=== PATIENT | male | born 1960 | race African-American/Black ===

== ENCOUNTER 2019-11-03 21:06 | Emergency (ER) | payer OTHER ==
[~2019-11-03] VITALS: Ht 182.9 cm; Wt 79.4 kg
--- NOTE | 2019-11-03 21:19 | NUR ---
SERAFIN AYALA at [facility] for MSE
--- NOTE | 2019-11-03 21:50 | NUR ---
Patient alert and oriented x4, no signs of acute distress noted, patient changed into hospital gown, on isolation as a person of interest, vital signs stable
[2019-11-03] MEDS ORDERED: ACETAMINOPHEN ES 500 MG TABLET PO ONE (22:00)
[2019-11-03] MEDS ORDERED: ACETAMINOPHEN ES 500 MG TABLET ONE (22:04)
[2019-11-03 22:14] LABS: BASOPHILS % (AUTO) 0.8 % (0.0-2.0); HEMOGLOBIN 10.9 g/dL (12.5-16.3); LYMPHOCYTES # (AUTO) 1.6 K/uL (20.0-40.0); LYMPHOCYTES % (AUTO) 41.3 % (20.5-51.5); MEAN CORPUSCULAR HGB CONC 33 g/dL (32.5-36.3); MEAN CORPUSCULAR VOLUME 81.6 fL (73.0-96.2); MONOCYTES # (AUTO) 0.2 K/uL (2.0-10.0); NEUTROPHILS % (AUTO) 52.9 % (38.5-71.5); PLATELET COUNT (AUTO) 292 K/uL (152-348); RED BLOOD CELL COUNT(AUTO) 4.05 MIL/uL (4.06-5.63); WHITE BLOOD COUNT (AUTO) 3.9 K/uL (3.6-10.2)
[2019-11-03 22:18] LABS: POTASSIUM 5.5 mmol/L (3.5-5.1)
--- NOTE | 2019-11-03 22:23 | NUR ---
Patient left via gurney/bed to radiology department
[2019-11-03 22:27] LABS: BILIRUBIN,TOTAL 0.6 mg/dL (0.2-1.0); TOTAL PROTEIN, SERUM 8.3 g/dL (6.4-8.2)
--- NOTE | 2019-11-03 23:07 | NUR ---
Patient noted resting in bed with eyes closed, no complaints of pain at this time, no signs of acute distress noted, vitals signs WNL, all needs met at this time
[2019-11-03 23:42] LABS: CREATINE KINASE, TOTAL 197 U/L (39-308)
[2019-11-03 23:53] LABS: FERRITIN 50 ng/mL (26-388); LACTATE DEHYDROGENASE 360 U/L (85-227)
--- NOTE | 2019-11-04 00:25 | NUR ---
According to lab, COVID swab has not been picked up from playground monitor at this time. Still awaiting departure and processing.
--- NOTE | 2019-11-04 00:34 | NUR ---
Per MD patient is ready to be admitted Dx chest pain and syncope, per [employer] states they will look for bed with will call transport
--- NOTE | 2019-11-04 01:54 | NUR ---
patient noted resting in bed, signs of distress noted, vitals WNL
--- NOTE | 2019-11-04 02:30 | NUR ---
No signs of acute distress noted, all needs met
--- NOTE | 2019-11-04 02:41 | NUR ---
Followed up with [employer] (Iris), states unable to find transport at this time, will follow up
--- NOTE | 2019-11-04 03:24 | NUR ---
Followed up with Iris from [facility], no transport available, Iris states she will call back
--- NOTE | 2019-11-04 04:35 | NUR ---
Claudia from [facility] called again and states she will try to get authorization to admit patient on tele unit of [facility]
--- NOTE | 2019-11-04 04:50 | NUR ---
authorization to admit patient received at this time (#[id number]), [facility] paged at this time
[2019-11-04] MEDS ORDERED: LORA2TAB95 PO (05:02)
[2019-11-04] MEDS ORDERED: DILT180C66 PO (05:02)
[2019-11-04] MEDS ORDERED: eye drop EACHEYE (05:02)
[2019-11-04] MEDS ORDERED: dilantin PO (05:02)
[2019-11-04] MEDS ORDERED: ALBU8.5H8 IH (05:02)
[2019-11-04] MEDS ORDERED: DIGO250T PO (05:02)
[2019-11-04] MEDS ORDERED: SERT50TA PO (05:02)
[2019-11-04] MEDS ORDERED: TRAZ-257 PO (05:02)
[2019-11-04 06:04] VITALS: BP 104/65
--- NOTE | 2019-11-04 06:07 | NUR ---
Patient discharged to homeless skilled nursing in stable condition. Written and verbal after care instructions given. Patient use wheelchair as a form of ambulation. Patient verbalizes understanding of instructions but declines. Taxi voucher provided. Stressed follow up or return to ER for worsening s/s. Patient does not wish to proceed with medical care recommended by Dr. Rogers. Patient given information related to possible complications, up to and including , which could occur as a result of leaving the hospital at this time. Patient verbalizes understanding of risks involved due to leaving against medical advice. Patient has signed AMA form.
== END 2019-11-04 06:13 | disposition left against medical advice (07) ==
LOC: ER 21:11
DX: R07.9 Chest pain, unspecified (principal); M48.02 Spinal stenosis, cervical region; R55 Syncope and collapse; I25.10 Atherosclerotic heart disease of native coronary artery without angina pectoris; Z95.5 Presence of coronary angioplasty implant and graft; Z85.028 Personal history of other malignant neoplasm of stomach; Z85.07 Personal history of malignant neoplasm of pancreas; Z91.14 Patient's other noncompliance with medication regimen; I25.2 Old myocardial infarction; E11.9 Type 2 diabetes mellitus without complications; Z59.0 Homelessness; J45.909 Unspecified asthma, uncomplicated; Z76.5 Malingerer [conscious simulation]; F10.129 Alcohol abuse with intoxication, unspecified; Y90.8 Blood alcohol level of 240 mg/100 ml or more
CPT/HCPCS: 36415; 70030-TC; 70450; 71045; 72125; 83615; 85025; 85730; 86140; 93005; A4663; A9150; G0480

== ENCOUNTER 2021-02-24 20:49 | Emergency (ER) | payer OTHER ==
[~2021-02-24] VITALS: Ht 182.9 cm; Wt 79.4 kg
[~2021-02-24 20:49] MED LIST: ALBU8.5H8 IH; DIGO250T PO; DILT180C66 PO; LORA2TAB95 PO; SERT50TA PO; TRAZ-257 PO; dilantin PO; eye drop EACHEYE
--- NOTE | 2021-02-24 20:55 | NUR ---
PT BIB RA 100 C/O CP. GIVEN NITRO X2 ANS ASPIRIN 325 MG ON FIELD. PT STATES "I'VE BEEN DRINKING ALL DAY". NO SOB OR LABORED BREATHING, AFEBRILE. NO N/V/D.
--- NOTE | 2021-02-24 21:15 | NUR ---
DR. CASTANEDA AT BEDSIDE, MSE IN PROGRESS.
--- NOTE | 2021-02-24 21:20 | NUR ---
PT HAS REFUSED IV AND LABS AT THIS TIME.
[2021-02-24] MEDS ORDERED: PHENYTOIN SODIUM IV 1,000 MG in IV NORMAL SALINE 100 ML IV ONE (21:30)
[2021-02-24] MEDS ORDERED: OXYCODONE/APAP 5-325 MG TABLET PO ONE (21:30)
[2021-02-24] MEDS ORDERED: OXYCODONE/APAP 5-325 MG TABLET ONE (21:42)
[2021-02-24] MEDS ORDERED: PHENYTOIN SODIUM 250 MG/5 ML VIAL IV ONE (21:43)
--- NOTE | 2021-02-24 21:44 | NUR ---
PT BEING TAKEN DOWN FOR CT/XRAY.
--- NOTE | 2021-02-24 21:58 | NUR ---
pt has returned from cat scan. er aware.
--- NOTE | 2021-02-24 22:00 | NUR ---
PT RETURNED FROM CT/XRAY.
[2021-02-24] MEDS ORDERED: PHEN100C4 PO (22:28)
[2021-02-24] MEDS ORDERED: PHENYTOIN SODIUM EXTENDED 100 MG CAPSULE.SA PO ONE ×2 (22:30→22:53)
[2021-02-24] MEDS ORDERED: THIAMINE HCL 100 MG TABLET PO ONE (22:30)
--- NOTE | 2021-02-24 22:35 | NUR ---
PT WAS GIVEN DISCHARGE INSTRUCTIONS AND UPON DISCHARGE PT STATES "I CAN'T GO HOME NOW I HAVE SUICIDAL THOUGHTS, I'M NOT RIGHT IN THE HEAD. I WANT TO BE SEEN AND EVALUATED BY A PSYCHIATRIST" NO PLANS WERE PROVIDED UPON EVALUATING PT. NO ONE TO ONE SITTER AVAILABLE. CHIEF DESIGN BRANCH AWARE. PT CLOSELY AND CONTINOUSLY BEING MONITORED. PROVIDED SAFE AND QUITE ENVIRONEMENT.
[2021-02-24] MEDS ORDERED: THIAMINE HCL 100 MG TABLET ONE (22:53)
[2021-02-24] MEDS ORDERED: HALOPERIDOL LACTATE 5 MG/1 ML VIAL IM ONE (23:15)
[2021-02-24] MEDS ORDERED: HALOPERIDOL LACTATE 5 MG/1 ML VIAL ONE (23:18)
--- NOTE | 2021-02-24 23:56 | NUR ---
LAB AT BEDSIDE.
[2021-02-25 00:35] LABS: HEMATOCRIT 37.9 % (36.7-47.1); MEAN CORPUSCULAR HEMOGLOBIN 29.1 uug (23.8-33.4); MEAN CORPUSCULAR VOLUME 87.2 fL (73.0-96.2); PLATELET COUNT (AUTO) 76 K/uL (152-348)
[2021-02-25 00:46] LABS: CREATININE 1.1 mg/dL (0.6-1.3); POTASSIUM 3.6 mmol/L (3.5-5.1)
[2021-02-25 00:51] LABS: BILIRUBIN,DIRECT 0.5 mg/dL (0.0-0.2); BILIRUBIN,TOTAL 0.7 mg/dL (0.2-1.0); PHENYTOIN (DILANTIN) 0.6 ug/mL (10.0-20.0); TOTAL PROTEIN, SERUM 9.3 g/dL (6.4-8.2)
--- NOTE | 2021-02-25 01:10 | NUR ---
PT NOTED TO BE IN BED ASLEEP. BED IN LOWEST POSITION FOR SAFETY PRECAUTIONS.
--- NOTE | 2021-02-25 01:41 | NUR ---
FAXED OVER FACE SHEET AND SUMMARY REPORT TO RONNELL BENNETT. PHONE #[phone] FAX # [phone]
--- NOTE | 2021-02-25 02:04 | NUR ---
CHANELLE FROM [facility] CALLED BACK AND STATED "OK WE WILL TRY AND ACCOMODATE THIS PATIENT, WE'LL GIVE YOU GUYS A CALL BACK".
--- NOTE | 2021-02-25 03:51 | NUR ---
PT RESTING COMFORTABLY. EYES CLOSED. BREATHING EVEN AND UNLABORED.
--- NOTE | 2021-02-25 05:35 | NUR ---
CALLED RONNELL JONES AND MADE AWARE PT WAS DISCHARGED.
[2021-02-25 05:45] VITALS: BP 125/82
--- NOTE | 2021-02-25 05:47 | NUR ---
Patient discharged to home in stable condition. Written and verbal after care instructions given. Patient verbalizes understanding of instructions. Stressed follow up or return to ER for worsening s/s. pt taken to waiting room via w/c, pt's waiting for him. pt able to ambulate without assistance pt steady gait.
[2021-02-25 17:14] LABS: NEUTROPHILS % (MANUAL) 52 % (42-75)
[2021-02-25 17:15] LABS: LYMPHOCYTES % (MANUAL) 46 % (20-40); MONOCYTES % (MANUAL) 2 % (2-10)
== END 2021-02-25 05:49 | disposition home or self-care (01) ==
LOC: ER 20:49
DX: F10.229 Alcohol dependence with intoxication, unspecified (principal); Y90.8 Blood alcohol level of 240 mg/100 ml or more; D61.818 Other pancytopenia; G40.909 Epilepsy, unspecified, not intractable, without status epilepticus; I25.2 Old myocardial infarction; Z59.00 Homelessness unspecified; Z88.0 Allergy status to penicillin; E11.9 Type 2 diabetes mellitus without complications; Z79.899 Other long term (current) drug therapy; Z91.041 Radiographic dye allergy status; Z95.5 Presence of coronary angioplasty implant and graft; F25.9 Schizoaffective disorder, unspecified; I25.10 Atherosclerotic heart disease of native coronary artery without angina pectoris; Z20.822 Contact with and (suspected) exposure to COVID-19
CPT/HCPCS: 36415; 70450; 71045; 80048; 80076; 80185; 80320; 83735; 85007; 85025; 85730; 87426; 93005; 96372; 99285; J1630; 70030-TC; G0480; J1165

== ENCOUNTER 2022-01-17 11:07 | Inpatient (IN) | payer OTHER ==
[~2022-01-17] VITALS: Ht 167.6 cm; Wt 66.7 kg
[~2022-01-17 11:07] MED LIST changes: +PHEN100C4 PO
--- NOTE | 2022-01-17 11:20 | NUR ---
PT ARRIVED VIA EMS COMPLAINING ABOUT CP; PT IN NAD; VSS. NO SOB NOTED
--- NOTE | 2022-01-17 11:25 | NUR ---
EKG DONE AND PT PLACED ON THE BODY WELDER. NO IV PRESENT AT HIS TIME.
[2022-01-17] MEDS ORDERED: DILTIAZEM HCL CD 120 MG CAP.SR.24H PO ONE ×2 (11:30→12:24)
[2022-01-17] MEDS ORDERED: ASPIRIN 325 MG TABLET PO ONE (11:30)
[2022-01-17] MEDS ORDERED: MORPHINE SULFATE 4 MG/1 ML DISP.SYRIN IV ONE (11:30)
[2022-01-17] MEDS ORDERED: DIGOXIN 125 MCG TABLET PO ONE (11:30)
[2022-01-17] MEDS ORDERED: levETIRAcetam 250 MG TABLET PO ONE (11:30)
--- NOTE | 2022-01-17 11:30 | NUR ---
UNABLE TO PLACE AN IV; NOTIFIED
[2022-01-17] MEDS ORDERED: DIGOXIN 125 MCG TABLET ONE (12:23)
[2022-01-17] MEDS ORDERED: levETIRAcetam 250 MG TABLET ONE (12:23)
[2022-01-17] MEDS ORDERED: ASPIRIN 325 MG TABLET ONE (12:24)
--- NOTE | 2022-01-17 12:30 | NUR ---
SERAFIN AYALA WAS ABLE TO PLACE IV WITH U/S. PT ALBINA WELL
[2022-01-17] MEDS ORDERED: MORPHINE SULFATE 4 MG/1 ML DISP.SYRIN ONE (12:37)
[2022-01-17 12:50] LABS: CARBON DIOXIDE 26 mmol/L (21-32); CHLORIDE 108 mmol/L (98-107); CREATININE 0.8 mg/dL (0.6-1.3); GLUCOSE 96 mg/dL (74-106); UREA NITROGEN, BLOOD 11 mg/dL (7-18)
--- NOTE | 2022-01-17 13:01 | NUR ---
Melanie morales in ED - 01/17/22 at 1302 by CRISTELA IV WAS ATTEMPTED WITHOUT SUCCESS. NOTIFIED
[2022-01-17 13:03] LABS: MEAN CORPUSCULAR HEMOGLOBIN 29.1 uug (23.8-33.4); MEAN CORPUSCULAR VOLUME 88.4 fL (73.0-96.2); PLATELET COUNT (AUTO) 183 K/uL (152-348)
--- NOTE | 2022-01-17 15:38 | NUR ---
PT BACK FROM CT; WATCHING VIDEOS ON HIS PHONE AT THIS TIME. NAD AT THIS TIME
[2022-01-17] MEDS ORDERED: REMEDY ESSENTIAL ZINC PASTE 113 GM TP PRN (16:30)
[2022-01-17] MEDS ORDERED: ONDANSETRON 4 MG/2 ML VIAL IV PRN (16:30)
[2022-01-17] MEDS ORDERED: ZOLPIDEM 5 MG TABLET PO PRN (16:30)
[2022-01-17] MEDS ORDERED: MORPHINE SULFATE 2 MG/1 ML DISP.SYRIN IV PRN (16:30)
[2022-01-17] MEDS ORDERED: ACETAMINOPHEN 325 MG TABLET PO PRN (16:30)
[2022-01-17] MEDS ORDERED: MAGNESIUM HYDROXIDE 30 ML LIQUID UDC PO PRN (16:30)
[2022-01-17] MEDS ORDERED: ALBUTEROL SULFATE 8 GM HFA.AER.AD IH PRN (16:45)
[2022-01-17] MEDS ORDERED: LORAZEPAM 1 MG TABLET PO PRN ×2 (16:45→17:53)
[2022-01-17 16:48] LABS: *AMPHETAMINE, URINE NEGATIVE (NEGATIVE); *CANNABINOID, URINE NEGATIVE (NEGATIVE); *COCCAINE, URINE NEGATIVE (NEGATIVE); *OPIATE, URINE POSITIVE (NEGATIVE); *PHENCYCLIDINE SCREEN,URINE NEGATIVE (NEGATIVE)
[2022-01-17] MEDS ORDERED: levETIRAcetam 500 MG TABLET PO ONE (17:00)
[2022-01-17] MEDS ORDERED: ALBUTEROL SULFATE 2.5 MG/3 ML NEBU NEB PRN (17:00)
[2022-01-17] MEDS: MORPHINE SULFATE 2 MG/1 ML DISP.SYRIN IM PRN ×2 (17:17→21:37)
[2022-01-17] MEDS ORDERED: PHENYTOIN SODIUM IV 1,000 MG in IV NORMAL SALINE 100 ML IV ONE (17:30)
--- NOTE | 2022-01-17 17:30 | NUR ---
No iv on pt awaiting midline nurse to have iv access.
--- NOTE | 2022-01-17 17:44 | NUR ---
Pt refused to be assessed. Pt IV pulled out by patient. Pt yelling "I WANT MY MORPHINE 4MG IV NOW!!!" explained to patient that iv dont have an iv access and wound need an order to change route to IM. Pt very aggressive and verbally abusive and condescending. VSS TELE SNR. no ectopy noted. Call light is within reach.
--- NOTE | 2022-01-17 18:27 | NUR ---
attempted to admit pt again as best as possible got information from chart and pt. Pt refused to be assessed still and states "I DONT ANSWER QUESTIONS". Notified maternity floor supervisor that we need Midline for patient as pt is a hard stick. Got Info for pharmacy pt goes to [facility] at [address] in [place]. ([phone]) to verify meds.
[2022-01-17 20:00] VITALS: BP 119/74
[2022-01-17] MEDS: TRAZODONE 100 MG TABLET PO SCH (20:06)
[2022-01-17] MEDS: PHENYTOIN SODIUM EXTENDED 100 MG CAPSULE.SA PO SCH (20:38)
[2022-01-17] MEDS: diphenhydrAMINE 25 MG CAP PO PRN (21:46)
[2022-01-17] MEDS: levETIRAcetam 500 MG TABLET PO SCH (22:52)
[2022-01-17] MEDS: MAG HYDROX/AL HYDROX/SIMETH 30 ML LIQUID UDC PO PRN (23:00)
[2022-01-18] VITALS: BP 131/79
[2022-01-18 04:00] VITALS: BP 122/75
[2022-01-18] MEDS: PANTOPRAZOLE SODIUM 40 MG TABLET.DR PO SCH (06:19)
[2022-01-18 07:03] LABS: CREATININE 0.9 mg/dL (0.6-1.3); MAGNESIUM 1.6 mg/dL (1.8-2.4); PHOSPHOROUS 3.6 mg/dL (2.5-4.9); POTASSIUM 4.1 mmol/L (3.5-5.1)
[2022-01-18 07:31] LABS: DIGOXIN 0.3 ng/mL (0.9-2.0)
[2022-01-18 07:32] LABS: HEMATOCRIT 34.7 % (36.7-47.1); MEAN CORPUSCULAR HEMOGLOBIN 29.1 uug (23.8-33.4); MEAN CORPUSCULAR VOLUME 88.7 fL (73.0-96.2); PLATELET COUNT (AUTO) 186 K/uL (152-348)
[2022-01-18 08:10] LABS: THYROID STIMULATING HORMONE 3.625 mIU/mL (0.358-3.740)
[2022-01-18] MEDS: SERTRALINE HCL 50 MG TABLET PO SCH (08:38)
[2022-01-18] MEDS: PHENYTOIN SODIUM EXTENDED 100 MG CAPSULE.SA PO SCH ×2 (08:38→21:04)
[2022-01-18] MEDS: levETIRAcetam 500 MG TABLET PO SCH ×2 (08:38→21:04)
--- NOTE | 2022-01-18 08:40 | NUR ---
Social Work consult was requested for a patient on [facility] for mental health and substance abuse resources. Patient is a 61-year-old male who was admitted to the hospital for chest pain. Patient is alert and oriented X4. Patient presents with anxious mood and congruent affect. Patient presents with poor judgment and insight. Patient states he has a , Alta Muro ([phone]), that lives in [place]. DILMA spoke with Alta Muro ([phone]) and she states that she is not the patients and is his friend. Patient states he has been homeless for three years. DILMA provided the patient with resources for [facility] [address] [place] [address] ([phone]) and [facility] [address] [facility] [address] ([phone]). DILMA gave resources for [facility] [address] [facility] [address]. Patient was appreciative of the resources. Resources were placed in the chart. Patient states he is unemployed and needs a wheelchair. DILMA spoke with the patients nurse, Priscila, who states she will order a wheelchair from [employer]. Patient states he has a history of alcohol abuse and the patients alcohol level is 333 and the toxicology report is positive for opiates. DLIMA provided the patient resources for [address] [address] ([phone]), [facility] [address] [facility] [address] ([phone]), and [facility] [address] [place] [address] ([phone]). Patient states he has a history of bipolar disorder. DILMA provided the patient with mental health resources for [facility] ([phone]) [address] [facility] [address]. DILMA placed the resources in the patients chart. Patient denied suicidal or homicidal ideation. Patient states he is open to going to [address] [address] ([phone]). DILMA spoke to Angela from [facility] ([phone]) faxed the patients clinical information (fax: [phone]). DILMA called [facility] on 01/18/22 and spoke to the admission navigator, Paris ([phone]) and she states the patient is under review. DILMA will continue to follow up.
[2022-01-18] MEDS: DILTIAZEM HCL CD 180 MG CAP.SR.24H PO SCH (08:42)
[2022-01-18] MEDS ORDERED: ASPIRIN 81 MG TAB.CHEW PO SCH (09:00)
[2022-01-18] MEDS ORDERED: DIGOXIN 250 MCG TABLET PO SCH (09:00)
[2022-01-18] MEDS ORDERED: MAGNESIUM SULFATE/D5W 100 ML IV SCH (09:45)
[2022-01-18] MEDS ORDERED: MAGNESIUM OXIDE 400 MG TABLET PO ONE (10:00)
--- NOTE | 2022-01-18 10:13 | NUR ---
Clinical SW note: SW contacted board and rn critical care, Jessie ([phone]) and she states she will come and assess the patient today by 4pm. SW informed patient's nurse, Priscila.
[2022-01-18 12:00] VITALS: BP 90/82
[2022-01-18] MEDS: diphenhydrAMINE 25 MG CAP PO PRN ×2 (13:55→20:18)
[2022-01-18] MEDS: MORPHINE SULFATE 2 MG/1 ML DISP.SYRIN IM PRN (13:55)
[2022-01-18 16:04] VITALS: BP 118/64
[2022-01-18] MEDS ORDERED: ONDANSETRON HCL 4 MG TABLET PO PRN (17:15)
[2022-01-18 20:00] VITALS: BP 109/68
[2022-01-18] MEDS: MAG HYDROX/AL HYDROX/SIMETH 30 ML LIQUID UDC PO PRN (20:06)
[2022-01-18] MEDS: TRAZODONE 100 MG TABLET PO SCH (21:04)
[2022-01-19 04:00] VITALS: BP 101/66
[2022-01-19] MEDS: diphenhydrAMINE 25 MG CAP PO PRN ×2 (04:55→15:04)
[2022-01-19] MEDS: MORPHINE SULFATE 2 MG/1 ML DISP.SYRIN IM PRN ×2 (04:56→14:55)
[2022-01-19] MEDS: PANTOPRAZOLE SODIUM 40 MG TABLET.DR PO SCH (06:12)
--- NOTE | 2022-01-19 06:43 | NUR ---
Slept intermittently, no acute distress noted, denies chest pain.
[2022-01-19 07:53] LABS: CREATININE 1.2 mg/dL (0.6-1.3); POTASSIUM 4.3 mmol/L (3.5-5.1)
[2022-01-19] MEDS: PHENYTOIN SODIUM EXTENDED 100 MG CAPSULE.SA PO SCH (08:47)
[2022-01-19] MEDS: levETIRAcetam 500 MG TABLET PO SCH (08:47)
[2022-01-19] MEDS: SERTRALINE HCL 50 MG TABLET PO SCH (08:47)
[2022-01-19] MEDS: DILTIAZEM HCL CD 180 MG CAP.SR.24H PO SCH (08:48)
[2022-01-19 11:17] VITALS: BP 115/77
--- NOTE | 2022-01-19 15:00 | NUR ---
PREPARED FOR DISCHARGE TO BOARD AND CARE. FRIEND AT BEDSIDE WAITING TO TRANSPORT PATIENT TO FACILITY.
[2022-01-19] MEDS ORDERED: TRAZ-257 PO (15:44)
[2022-01-19] MEDS ORDERED: LEVE500T9 PO (15:44)
[2022-01-19] MEDS ORDERED: PHEN100C4 PO (15:44)
[2022-01-19] MEDS ORDERED: DILT180C66 PO (15:44)
[2022-01-19] MEDS ORDERED: ALBU8.5H8 IH (15:44)
[2022-01-19] MEDS ORDERED: SERT-439 PO (15:44)
--- NOTE | 2022-01-19 15:58 | NUR ---
Clinical Social Work Note: DILMA spoke on the phone with community coordinator, Jessie Murphy ([phone]). Jessie Murphy ([phone]) did an assessment with the patient at bedside. Patient is open to going to a board and care facility. Jessie Murphy ([phone]) found placement for the patient at [facility] [address] [place] [address]. DILMA spoke with the social insurance administrator, Zechariah ([phone]) from [facility] [address] [place] [address] and he confirmed the patient was accepted. DILMA spoke with Doctor Ashley ([phone]) to inform her over the phone. Patients primary contact, Alta Muro ([phone]) states she will drive the patient to [facility] [address] [place] [address] at discharge. DILMA provided, Alta Muro ([phone]) with directions to the facility.
--- NOTE | 2022-01-19 17:10 | NUR ---
DISCHARGED VIA W/C, ACCOMPANIED BY Jose PEÑA TO AUTO. NO C/O DISCOMFORT.
== END 2022-01-19 17:10 | DRG 203 ==
LOC: ER 11:07 → TELE3 16:28
PROVIDERS: ADMIT Student in an Organized Health Care Education/Training Program; ATTEND Student in an Organized Health Care Education/Training Program
DX: M94.0 Chondrocostal junction syndrome [Tietze] (principal); D70.9 Neutropenia, unspecified; I50.9 Heart failure, unspecified; R56.9 Unspecified convulsions; D64.9 Anemia, unspecified; E11.9 Type 2 diabetes mellitus without complications; F10.10 Alcohol abuse, uncomplicated; F31.9 Bipolar disorder, unspecified; I25.10 Atherosclerotic heart disease of native coronary artery without angina pectoris; I48.0 Paroxysmal atrial fibrillation; Z85.028 Personal history of other malignant neoplasm of stomach; Z59.00 Homelessness unspecified; V89.2XXS Person injured in unspecified motor-vehicle accident, traffic, sequela; Z91.199 Patient's noncompliance with other medical treatment and regimen due to unspecified reason; Y90.8 Blood alcohol level of 240 mg/100 ml or more; Z76.5 Malingerer [conscious simulation]; Z88.0 Allergy status to penicillin; Z20.822 Contact with and (suspected) exposure to COVID-19
CPT/HCPCS: 36415; 70450; 71045; 83735; 84100; 84443; 84484; 85025; 93005; 93307; A4663; G0378; G0480; J1165; J2270; J3475; Q0162; Q0163